=== PATIENT | male | born 1965 | race Caucasian/White ===

== ENCOUNTER 2017-06-26 13:41 | Emergency (ER) | payer MEDICAID ==
--- NOTE | 2017-06-26 14:22 | Emergency Department Record ---
History of Present Illness - General Chief Complaint: Back Pain/Injury Stated Complaint: LOWER BACK PAIN,RADIATING DOWN LT LEG Time Seen by Provider: 06/26/17 14:13 Source: Patient, RN notes reviewed - History of Present Illness Initial Comments: left SI paont area and pain radiates down the leg left and this has been going on for 2 weeks and he states no Dr. or clinics or hospitals in the last month. Able to stand on toes and standing lfexion to the ankles and more pain coming up. 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 last CT scan about one year ago and he is scheduled to have that check in the next week. No headache. No chest pain. MD Complaint: Back pain Radiation: Left leg Severity scale (1-10): 8 Quality: Sharp, Stabbing Consistency: Getting worse Improves With: None Worsens With: Movement Associated Symptoms: Denies other symptoms - Related Data Home Medications Medication Instructions Recorded Confirmed Last Taken Aspirin [Aspirin EC] 81 mg PO DAILY 02/13/15 06/26/17 03/16/16 Atorvastatin Calcium [Lipitor] 80 mg PO DAILY 02/13/15 06/26/17 03/16/16 Clopidogrel Bisulfate [Plavix] 75 mg PO DAILY 02/13/15 06/26/17 03/16/16 Lisinopril [Zestril] 2.5 mg PO DAILY 02/13/15 06/26/17 03/16/16 Nitroglycerin [Nitrostat] 0.4 mg SL ASDIR PRN 02/13/15 06/26/17 Unknown Previous Rx's Medication Instructions Recorded Cyclobenzaprine HCl [Flexeril] 10 mg PO TID #20 tablet 06/26/17 Naproxen [Naprosyn] 500 mg PO Q12H #20 tab. 06/26/17 Allergies Allergy/AdvReac Type Severity Reaction Status Date / Time lidocaine Allergy PT UNSURE Verified 03/16/16 18:03 OF REACTION albuterol AdvReac Severe TACHYCARDIA Verified 03/16/16 18:03 Travel Screening - Travel/Exposure Within Last 30 Days Have you traveled within the last 30 days?: No - Travel/Exposure Within Last Year Have you traveled outside the [place] in the last year?: No - Additonal Travel Details Have you been exposed to anyone with a communicable illness?: No - Travel Symptoms Symptom Screening: None Review of Systems Reviewed: No additional complaints except as noted below Constitutional: Reports: As per HPI. Denies: Chills, Fever, Malaise, Night sweats, Weakness, Weight change Eyes: Reports: As per HPI. Denies: Eye discharge, Eye pain, Photophobia, Vision change ENT: Reports: As per HPI. Denies: Congestion, Dental pain, Ear pain, Epistaxis , Hearing loss, Throat pain Respiratory: Reports: As per HPI. Denies: Cough, Dyspnea, Hemoptysis, Stridor, Wheezes Cardiovascular: Reports: As per HPI. Denies: Arrhythmia, Chest pain, Dyspnea on exertion, Edema, Murmurs, Orthopnea, Palpitations, Paroxysmal nocturnal dyspnea, Rheumatic Fever, Syncope Endocrine: Reports: As per HPI. Denies: Fatigue, Heat or cold intolerance, Polydipsia, Polyuria Gastrointestinal: Reports: As per HPI. Denies: Abdominal pain, Constipation, Diarrhea, Hematemesis, Hematochezia, Melena, Nausea, Vomiting Genitourinary: Reports: As per HPI. Denies: Dysuria, Frequency, Hematuria, Incontinence, Retention, Testicular pain, Testicular mass, Urgency Musculoskeletal: Reports: As per HPI, Back pain. Denies: Arthralgia, Gout, Joint swelling, Myalgia, Neck pain Skin: Reports: As per HPI. Denies: Bruising, Change in color, Change in hair/ nails, Lesions, Pruritus, Rash Neurological: Reports: As per HPI. Denies: Abnormal gait, Confusion, Headache, Numbness, Paresthesias, Seizure, Tingling, Tremors, Vertigo, Weakness Psychiatric: Reports: As per HPI. Denies: Anxiety, Auditory hallucinations, Depression, Homicidal thoughts, Suicidal thoughts, Visual hallucinations Hematological/Lymphatic: Reports: As per HPI. Denies: Anemia, Blood Clots, Easy bleeding, Easy bruising, Swollen glands Past Medical History - SOCIAL HISTORY Smoking Status: Heavy tobacco smoker (>10/day) Alcohol Use: None Drug Use: Occasional Drug Use Detail:: Marijuana - RESPIRATORY Hx Respiratory Disorders: No - CARDIOVASCULAR Hx Cardio Disorders: Yes Hx Heart Attack: Yes (with stents x3) Comment:: aneurysm 2015 - NEURO Hx Neuro Disorders: Yes Hx CVA: Yes (Jul 2015) - GI Hx GI Disorders: No - Hx Genitourinary Disorders: No - ENDOCRINE Hx Endocrine Disorders: No - MUSCULOSKELETAL Hx Musculoskeletal Disorders: No - PSYCH Hx Psych Problems: No - HEMATOLOGY/ONCOLOGY Hx Hematology/Oncology Disorders: No Family Medical History Any Significant Family History?: No Hx Stroke: Mother, Brother/Sister Physical Exam - General General Appearance: Alert, Oriented x3, Cooperative, No acute distress - Head Head exam: Normal inspection - Eye Eye exam: Normal appearance, PERRL Pupils: Normal accommodation - ENT ENT exam: Normal exam, Mucous membranes moist, Normal external ear exam, Normal orophraynx, TM's normal bilaterally Ear exam: Normal external inspection. negative: External canal tenderness Nasal Exam: Normal inspection. negative: Discharge, Sinus tenderness Mouth exam: Normal external inspection, Tongue normal Teeth exam: Normal inspection. negative: Dental caries Throat exam: Normal inspection. negative: Tonsillar erythema, Tonsillar exudate - Neck Neck exam: Normal inspection, Full ROM. negative: Tenderness - Respiratory Respiratory exam: Normal lung sounds bilaterally. negative: Respiratory distress - Cardiovascular Cardiovascular Exam: Regular rate, Normal rhythm, Normal heart sounds - GI/Abdominal GI/Abdominal exam: Soft, Normal bowel sounds. negative: Tenderness - Rectal Rectal exam: Deferred - exam: Deferred - Extremities Extremities exam: Normal inspection, Full ROM, Normal capillary refill. negative: Tenderness - Back Back exam: Reports: Normal inspection, Full ROM, Tenderness (left SI joint pain worse with palpation). Denies: Muscle spasm, Rash noted - Neurological Neurological exam: Alert, Normal gait, Oriented X3, Reflexes normal - Psychiatric Psychiatric exam: Normal affect, Normal mood - Skin Skin exam: Dry, Intact, Normal color, Warm Course Vital Signs 06/26/17 13:48 Temperature 98.1 F Pulse Rate 69 Respiratory 18 Rate Blood Pressure 121/85 Pulse Ox 96 - Reevaluation(s) Reevaluation #1: patient no longer in the room. 06/26/17 15:42 Disposition Clinical Impression: Lumbar strain Qualifiers: Encounter type: initial encounter Qualified Code(s): S39.012A - Strain of muscle, fascia and tendon of lower back, initial encounter Disposition: Home, Self-Care Condition: (2) Stable Instructions: Low Back Strain (ED) Additional Instructions: follow up with family Prescriptions: Cyclobenzaprine HCl [Flexeril] 10 mg PO TID #20 tablet Naproxen [Naprosyn] 500 mg PO Q12H #20 tab.dr Forms: Patient Portal Access Time of Disposition: 15:47 Quality - Blood Pressure Screening Does Patient Have Any of the Following: No Blood Pressure Classification: Pre-Hypertensive BP Reading Systolic Measurement: 121 Diastolic Measurement: 85 Screening for High Blood Pressure: < Pre-Hypertensive BP, F/U Documented > [ G8950]
[2017-06-26] MEDS ORDERED: ORPHENADRINE CITRATE 60MG/2ML VIAL IM ONE (14:24)
[2017-06-26] MEDS ORDERED: KETOROLAC 60 MG/2 ML VIAL IM STA (14:24)
[2017-06-26] MEDS ORDERED: PROMETHAZINE HCL 25 MG/ML VIAL IM ONE (15:21)
[2017-06-26] MEDS ORDERED: HYDROMORPHONE HCL 1MG/ML **SYRINGE IM ONE (15:21)
== END 2017-06-26 15:46 | disposition left against medical advice (07) ==
LOC: ER 13:41
DX: S39.012A Strain of muscle, fascia and tendon of lower back, initial encounter (principal); X58.XXXA Exposure to other specified factors, initial encounter
CPT/HCPCS: 96372; 99283; J1885; J2360

== ENCOUNTER 2017-12-11 12:59 | Emergency (ER) | payer MEDICAID ==
[2017-12-11] MEDS ORDERED: HYDROCODONE/APAP 7.5/325MG TABLET PO ONE (13:15)
[2017-12-11] MEDS ORDERED: OSTELTAMIVIR 75 MG CAP PO ONE (13:15)
--- NOTE | 2017-12-11 13:20 | Emergency Department Record ---
History of Present Illness - General Stated Complaint: FLU SYMPTOMS Time Seen by Provider: 12/11/17 13:15 Source: Patient, Family Mode of Arrival: Ambulatory Limitations: No limitations - History of Present Illness Initial Comments: 52 yo male presents with cough, congestion, runny nose, fever, chills, and all over body aches. The onset was last night. No vomiting, no rash, no diarrhea. He did get a flu shot and a pneumonia shot this year. He has been exposed to others with very similar symptoms. His back hurts from shaky chills. No abdominal pain MD Complaint: Cough, Fever, Nasal congestion, Rhinorrhea, Sinus pain, Other ( chills and fever) - Related Data Home Medications Medication Instructions Recorded Confirmed Last Taken Metoprolol Tartrate [Lopressor] 12.5 mg PO Q12H 12/11/17 12/11/17 Unknown Previous Rx's Medication Instructions Recorded Cyclobenzaprine HCl [Flexeril] 10 mg PO TID #20 tablet 06/26/17 Naproxen [Naprosyn] 500 mg PO Q12H #20 tab.dr 06/26/17 Azithromycin [Zithromax] 250 mg PO DAILY #4 tab 12/11/17 Hydrocodone/Acetaminophen [[place] 1 each PO Q8H PRN #9 tablet 12/11/17 5-325 Tablet] Oseltamivir Phosphate [Tamiflu] 75 mg PO BID #10 capsule 12/11/17 Allergies Allergy/AdvReac Type Severity Reaction Status Date / Time lidocaine Allergy PT UNSURE Verified 03/16/16 18:03 OF REACTION albuterol AdvReac Severe TACHYCARDIA Verified 03/16/16 18:03 Past Medical History - SOCIAL HISTORY Smoking Status: Heavy tobacco smoker (>10/day) Drug Use: Occasional Drug Use Detail:: Marijuana - RESPIRATORY Hx Respiratory Disorders: No - CARDIOVASCULAR Hx Cardio Disorders: Yes Hx Heart Attack: Yes (with stents x3) Comment:: aneurysm 2014 - NEURO Hx Neuro Disorders: Yes Hx CVA: Yes (Jul 2015) - GI Hx GI Disorders: No - Hx Genitourinary Disorders: No - ENDOCRINE Hx Endocrine Disorders: No - MUSCULOSKELETAL Hx Musculoskeletal Disorders: No - PSYCH Hx Psych Problems: No - HEMATOLOGY/ONCOLOGY Hx Hematology/Oncology Disorders: No Family Medical History Hx Stroke: Mother, Brother/Sister Course - Reevaluation(s) Reevaluation #1: 12/11/17 14:28 The Influenza are negative The CXR is negative His symptoms are classic for flu and possibly a false negative. I recommended treatment for Flu as well We discussed home care and reasons to return to the ED. Disposition Disposition: Discharge Clinical Impression: Influenza, Bronchitis Disposition: Home, Self-Care Condition: (1) Good Instructions: Influenza (ED) Additional Instructions: Rest and stay well hydrated Return if worse, fever, vomiting or any new concerns Prescriptions: Azithromycin [Zithromax] 250 mg PO DAILY #4 tab Hydrocodone/Acetaminophen [[place] 5-325 Tablet] 1 each PO Q8H PRN #9 tablet PRN Reason: Pain - General Oseltamivir Phosphate [Tamiflu] 75 mg PO BID #10 capsule Forms: Patient Portal Access Time of Disposition: 14:32 Quality - Quality Measures Quality Measures: N/A - Blood Pressure Screening Does Patient Have Any of the Following: No Blood Pressure Classification: Pre-Hypertensive BP Reading Systolic Measurement: 121 Diastolic Measurement: 75 Screening for High Blood Pressure: < Pre-Hypertensive BP, F/U Documented > [ G8950] Pre-Hypertensive Follow-up Interventions: Referral to alternative/primary care provider.
[2017-12-11 13:42] LABS: INFLUENZA A NEGATIVE (NEGATIVE)
[2017-12-11 13:43] LABS: INFLUENZA B NEGATIVE (NEGATIVE)
[2017-12-11] MEDS ORDERED: AZITHROMYCIN 500 MG TABLET PO ONE (14:37)
--- NOTE | 2017-12-12 09:45 | RADIOLOGY REPORT ---
EXAM: CHEST 2 VIEWS HISTORY: COUGH, BODY ACHES, FEVER. TECHNIQUE: PA and lateral views. COMPARISON: Two-view chest, 02/06/16. FINDINGS: Persistent pleural thickening at the right base as before. Heart size stable. Coronary artery calcification or stent as before along the left side of the heart. When comparison is made with the prior study, no definite acute infiltrate is seen today. No pneumothorax evident. IMPRESSION: 1. CHRONIC PLEURAL THICKENING AT THE RIGHT BASE. 2. NO DEFINITE ACUTE INFILTRATE SEEN. JOB NUMBER: [id number] [facility]
== END 2017-12-11 14:41 | disposition home or self-care (01) ==
LOC: ER 12:59
DX: J10.1 Influenza due to other identified influenza virus with other respiratory manifestations (principal); Z86.73 Personal history of transient ischemic attack (TIA), and cerebral infarction without residual deficits; I25.2 Old myocardial infarction; F17.210 Nicotine dependence, cigarettes, uncomplicated
CPT/HCPCS: 71046; 87400; 99283; 99284

== ENCOUNTER 2018-07-19 14:59 | Emergency (ER) | payer MEDICAID ==
[2018-07-19] MEDS ORDERED: 0.9 % SODIUM CHLORIDE 1000ML 1,000 ML IV PRN (15:04)
[2018-07-19] MEDS ORDERED: ACTIVATED CHARCOAL/SORBITOL SOL 50 GM/240 ML BTL PO ONE (15:05)
[2018-07-19 15:13] LABS: BASO % 0.3 % (0-6); EOS % 1.8 % (0-6); HEMATOCRIT 43.4 % (42.0-52.0); HEMOGLOBIN 14.4 gm/dl (14.0-18.0); LYMPH % 39.5 % (16-45); MEAN CELL VOLUME 90.6 fl (81-97); MEAN CORPUSCULAR HEMOGLOBIN 30.1 pg (27-33); MEAN CORPUSCULAR HGB CONC 33.2 g/dl (32-36); MEAN PLATELET VOLUME 9.1 fl (7.4-10.4); MONO % 8.4 % (0-9); PLATELET COUNT 284 K/uL (130-400); RED BLOOD COUNT 4.79 M/uL (4.40-5.70); RED CELL DISTRIBUTION WIDTH 14.3 % (11.5-14.5); WHITE BLOOD COUNT W/O DIFF 6.2 K/uL (4.2-12.2)
[2018-07-19 15:26] LABS: BLOOD UREA NITROGEN 9 mg/dL (6-20); INR 1.1; PARTIAL THROMBOPLASTIN TIME 42.2 SECONDS (24.5-39.1); PROTHROMBIN TIME (PATIENT) 10.7 SECONDS (9.5-12.1)
[2018-07-19 15:27] LABS: CREATININE 1.1 mg/dL (0.7-1.2); EST GLOMERULAR FILTRATION RATE > 60 mL/min; TOTAL PROTEIN 6.4 g/dL (6.6-8.7)
[2018-07-19 15:29] LABS: GLUCOSE,RANDOM 105 mg/dL (74-109)
[2018-07-19 15:32] LABS: ALB/GLOB RATIO 1.9 (1.1-1.8); ALBUMIN 4.2 g/dL (4.0-5.0); ALKALINE PHOSPHATASE 42 U/L (40-129); ALT/SGPT 28 U/L (<41); AST/SGOT 24 U/L (10.0-50.0)
--- NOTE | 2018-07-19 15:37 | Emergency Department Record ---
History of Present Illness - General Chief Complaint: Overdose Stated Complaint: OD Time Seen by Provider: 07/19/18 15:03 Source: Patient, RN notes reviewed Mode of Arrival: Wheelchair - History of Present Illness Initial Comments: patient overdosed on ativan 1mg up to 26 pill and trazodone 50 mg times 5 and lexapro 1o mg times three. Patient talking and lethargic with a good gag reflex and gave him charcoal because one hour since ingestion. Marriage problems. Complaint: Intentional overdose Onset/Timin -: Hour(s) - Detail Intent: Want to escape, Other How Overdose Was Discovered: Family/friend present at time, Other Context: Accidental Overdose: Other Context: Intentional Overdose: Relationship problems Treatments Prior to Arrival: None - Related Data Home Medications Medication Instructions Recorded Confirmed Last Taken Escitalopram Oxalate [Lexapro] 10 mg PO DAILY 07/19/18 07/19/18 Unknown Lorazepam [Ativan] 1 mg PO Q8H 07/19/18 07/19/18 Unknown Trazodone HCl 50 mg PO QHS 07/19/18 07/19/18 Unknown Allergies Allergy/AdvReac Type Severity Reaction Status Date / Time lidocaine Allergy PT UNSURE Verified 03/16/16 18:03 OF REACTION albuterol AdvReac Severe TACHYCARDIA Verified 03/16/16 18:03 Travel Screening - Travel/Exposure Within Last 30 Days Have you traveled within the last 30 days?: No Review of Systems Reviewed: No additional complaints except as noted below Constitutional: Reports: As per HPI. Denies: Chills, Fever, Malaise, Night sweats, Weakness, Weight change Eyes: Reports: As per HPI. Denies: Eye discharge, Eye pain, Photophobia, Vision change ENT: Reports: As per HPI. Denies: Congestion, Dental pain, Ear pain, Epistaxis , Hearing loss, Throat pain Respiratory: Reports: As per HPI. Denies: Cough, Dyspnea, Hemoptysis, Stridor, Wheezes Cardiovascular: Reports: As per HPI. Denies: Arrhythmia, Chest pain, Dyspnea on exertion, Edema, Murmurs, Orthopnea, Palpitations, Paroxysmal nocturnal dyspnea, Rheumatic Fever, Syncope Endocrine: Reports: As per HPI. Denies: Fatigue, Heat or cold intolerance, Polydipsia, Polyuria Gastrointestinal: Reports: As per HPI. Denies: Abdominal pain, Constipation, Diarrhea, Hematemesis, Hematochezia, Melena, Nausea, Vomiting Genitourinary: Reports: As per HPI. Denies: Dysuria, Frequency, Hematuria, Incontinence, Retention, Testicular pain, Testicular mass, Urgency Musculoskeletal: Reports: As per HPI. Denies: Arthralgia, Back pain, Gout, Joint swelling, Myalgia, Neck pain Skin: Reports: As per HPI. Denies: Bruising, Change in color, Change in hair/ nails, Lesions, Pruritus, Rash Neurological: Reports: As per HPI. Denies: Abnormal gait, Confusion, Headache, Numbness, Paresthesias, Seizure, Tingling, Tremors, Vertigo, Weakness Psychiatric: Reports: As per HPI. Denies: Anxiety, Auditory hallucinations, Depression, Homicidal thoughts, Suicidal thoughts, Visual hallucinations Hematological/Lymphatic: Reports: As per HPI. Denies: Anemia, Blood Clots, Easy bleeding, Easy bruising, Swollen glands Past Medical History - SOCIAL HISTORY Smoking Status: Heavy tobacco smoker (>10/day) - RESPIRATORY Hx Respiratory Disorders: No - CARDIOVASCULAR Hx Cardio Disorders: Yes Hx Heart Attack: Yes (with stents x3) Comment:: aneurysm 2014 - NEURO Hx Neuro Disorders: Yes Hx CVA: Yes (Jul 2015) - GI Hx GI Disorders: No - Hx Genitourinary Disorders: No - ENDOCRINE Hx Endocrine Disorders: No - MUSCULOSKELETAL Hx Musculoskeletal Disorders: No - PSYCH Hx Psych Problems: No - HEMATOLOGY/ONCOLOGY Hx Hematology/Oncology Disorders: No Family Medical History Any Significant Family History?: No Hx Stroke: Mother, Brother/Sister Physical Exam - General General Appearance: Oriented x3, Cooperative, Moderate distress, Other ( lethargic but wakes up to verbal commands) - Head Head exam: Normal inspection - Eye Eye exam: Normal appearance, PERRL Pupils: Normal accommodation - ENT ENT exam: Normal exam, Mucous membranes moist, Normal external ear exam, Normal orophraynx, TM's normal bilaterally Ear exam: Normal external inspection. negative: External canal tenderness Nasal Exam: Normal inspection. negative: Discharge, Sinus tenderness Mouth exam: Normal external inspection, Tongue normal Teeth exam: Normal inspection. negative: Dental caries Throat exam: Normal inspection. negative: Tonsillar erythema, Tonsillar exudate - Neck Neck exam: Normal inspection, Full ROM. negative: Tenderness - Respiratory Respiratory exam: Normal lung sounds bilaterally. negative: Respiratory distress - Cardiovascular Cardiovascular Exam: Regular rate, Normal rhythm, Normal heart sounds - GI/Abdominal GI/Abdominal exam: Soft, Normal bowel sounds. negative: Tenderness - Rectal Rectal exam: Deferred - exam: Deferred - Extremities Extremities exam: Normal inspection, Full ROM, Normal capillary refill. negative: Tenderness - Back Back exam: Reports: Normal inspection, Full ROM. Denies: Muscle spasm, Rash noted, Tenderness - Neurological Neurological exam: Alert, Normal gait, Oriented X3, Reflexes normal - Psychiatric Psychiatric exam: Normal affect, Normal mood - Skin Skin exam: Dry, Intact, Normal color, Warm Course Vital Signs 07/19/18 07/19/18 15:08 15:17 Temperature 98.2 F Pulse Rate 71 Respiratory 22 Rate Blood Pressure 101/62 Pulse Ox 96 - Reevaluation(s) Reevaluation #1: discussed case with Dr. Mcdonald and will transfer to [facility] 07/19/18 16:50 Reevaluation #2: filled out petition and cert and Discussed case with Dr. Mcdonald and will transfer to [facility] ICU and patient following commands 07/19/18 17:42 Medical Decision Making - Lab Data Result diagrams: 07/19/18 15:00 07/19/18 15:00 Lab Results 07/19/18 07/19/18 07/19/18 Range/Units 15:00 15:00 15:00 WBC 6.2 (4.2-12.2) K/uL RBC 4.79 (4.40-5.70) M/uL Hgb 14.4 (14.0-18.0) gm/dl Hct 43.4 (42.0-52.0) % MCV 90.6 (81-97) fl MCH 30.1 (27-33) pg MCHC 33.2 (32-36) g/dl RDW 14.3 (11.5-14.5) % Plt Count 284 (130-400) K/uL MPV 9.1 (7.4-10.4) fl Gran % 50.0 (47-80) % Lymphocytes % 39.5 (16-45) % Monocytes % 8.4 (0-9) % Eosinophils % 1.8 (0-6) % Basophils % 0.3 (0-6) % PT 10.7 (9.5-12.1) SECONDS INR 1.1 APTT 42.2 H (24.5-39.1) SECONDS Sodium 140 (136-145) mmol/L Potassium 4.0 (3.4-4.5) mmol/L Chloride 102 (98-107) mmol/L Carbon Dioxide 24.0 (22-29) mmol/L Anion Gap 14.0 (7-16) BUN 9 (6-20) mg/dL Creatinine 1.1 (0.7-1.2) mg/dL Estimated GFR > 60 mL/min Calcium 9.2 (8.6-10.0) mg/dL Total Bilirubin 0.70 (0.2-1.0) mg/dL Total Protein 6.4 L (6.6-8.7) g/dL Disposition Clinical Impression: Suicide attempt Overdose Qualifiers: Encounter type: initial encounter Injury intent: intentional self-harm Qualified Code(s): T50.902A - Poisoning by unspecified drugs, medicaments and biological substances, intentional self-harm, initial encounter Disposition: Acute Care Hospital Transfer Condition: (2) Stable Forms: Patient Portal Access Time of Disposition: 16:49 Quality - Quality Measures Quality Measures: N/A - Blood Pressure Screening Does Patient Have Any of the Following: No Blood Pressure Classification: Normal BP Reading Systolic Measurement: 101 Diastolic Measurement: 62 Screening for High Blood Pressure: < Normal BP, F/U Not Required > [G8783]
[2018-07-19 17:13] LABS: ARTERIAL BLD GAS O2 SATURATION 93.2 % (95-98); ARTERIAL BLOOD GAS BASE EXCESS -2.5 mmol/L (-2 - 3); ARTERIAL BLOOD GAS HCO3 21.9 mmol/L (18-23); ARTERIAL BLOOD GAS PCO2 38.5 mmHg (35-48); ARTERIAL BLOOD GAS pH 7.37 (7.35-7.45); CARBOXYHEMOGLOBIN 6.8 % (0-1.5); O2 HEMOGLOBIN 87.1 % vol (94-99); TOTAL HEMOGLOBIN 13.1 g/dl (14-18)
[2018-07-19 17:14] LABS: METHEMOGLOBIN -0.3 % (0.0-1.5)
[2018-07-19 17:15] LABS: ALLEN TEST PASS
[2018-07-19 17:26] LABS: URINE APPEARANCE CLEAR; URINE BILIRUBIN SMALL (NEGATIVE); URINE BLOOD NEGATIVE (NEGATIVE); URINE COLOR YELLOW; URINE GLUCOSE (UA) NEGATIVE (NEGATIVE); URINE KETONE NEGATIVE (NEGATIVE); URINE LEUKOCYTE ESTERASE NEGATIVE (NEGATIVE); URINE NITRITE NEGATIVE (NEGATIVE); URINE PROTEIN NEGATIVE (NEGATIVE); URINE UROBILINOGEN 0.2 E.U./dL (0.20 - 1.00)
[2018-07-19 17:29] LABS: BARBITURATE SCREEN URINE NOT DETECTED; BENZODIAZEPINE SCREEN URINE DETECTED; METHADONE SCREEN URINE NOT DETECTED; OPIATE SCREEN URINE NOT DETECTED; THC SCREEN URINE NOT DETECTED; TRICYCLIC ANTIDEPRESSANT SCRN NOT DETECTED
[2018-07-19 17:30] LABS: AMPHETAMINE SCREEN URINE NOT DETECTED; COCAINE SCREEN URINE NOT DETECTED; METHAMPHETAMINE SCREEN NOT DETECTED; OXYCODONE SCREEN URINE NOT DETECTED; PHENCYCLIDINE SCREEN URINE NOT DETECTED; PROPOXYPHENE SCREEN URINE NOT DETECTED
== END 2018-07-19 19:28 | disposition left against medical advice (07) ==
LOC: ER 14:59
DX: T42.4X2A Poisoning by benzodiazepines, intentional self-harm, initial encounter (principal); T43.212A Poisoning by selective serotonin and norepinephrine reuptake inhibitors, intentional self-harm, initial encounter; Z86.73 Personal history of transient ischemic attack (TIA), and cerebral infarction without residual deficits; I25.2 Old myocardial infarction; F17.210 Nicotine dependence, cigarettes, uncomplicated
CPT/HCPCS: 36600; 80053; 80305; 81003; 81025; 82375; 82803; 85025; 85610; 85730; 93005; 93010; 96374; 99285

== ENCOUNTER 2018-12-13 11:25 | Emergency (ER) | payer MEDICAID ==
--- NOTE | 2018-12-13 11:49 | Emergency Department Record ---
History of Present Illness - General Chief complaint: ENT Stated complaint: DENTAL PAIN Time Seen by Provider: 12/13/18 11:28 Source: Patient Mode of Arrival: Ambulatory Limitations: No limitations - History of Present Illness Initial comments: The patient has a hx of chronic dental pain for years and now the teeth are worse over the last 3 days. He is having face pain but no fever or swelling. MD complaint: Tooth pain Onset/Timin -: Days(s) Severity: Moderate Severity scale (1-10): 5 Quality: Sharp Consistency: Constant Improves with: None Worsens with: Eating Context- Dental: History of dental caries, Poor dental care - Related Data Home Medications Medication Instructions Recorded Confirmed Last Taken Quetiapine Fumarate [Seroquel] 50 mg PO BID 12/13/18 12/13/18 12/13/18 Previous Rx's Medication Instructions Recorded Clindamycin HCl [Cleocin HCl] 300 mg PO QID #28 capsule 12/13/18 Allergies Allergy/AdvReac Type Severity Reaction Status Date / Time lidocaine Allergy PT UNSURE Verified 03/16/16 18:03 OF REACTION albuterol AdvReac Severe TACHYCARDIA Verified 03/16/16 18:03 Travel Screening - Travel/Exposure Within Last 30 Days Have you traveled within the last 30 days?: No - Travel/Exposure Within Last Year Have you traveled outside the [place] in the last year?: No - Additonal Travel Details Have you been exposed to anyone with a communicable illness?: No - Travel Symptoms Symptom Screening: None Review of Systems Constitutional: Denies: Chills, Fever Past Medical History - SOCIAL HISTORY Smoking Status: Heavy tobacco smoker (>10/day) Alcohol Use: None Drug Use: Occasional Drug Use Detail:: Marijuana - RESPIRATORY Hx Respiratory Disorders: Yes Hx COPD: Yes - CARDIOVASCULAR Hx Cardio Disorders: Yes Hx Heart Attack: Yes (with stents x3) Comment:: aneurysm 2014 - NEURO Hx Neuro Disorders: Yes Hx CVA: Yes (Jul 2015) - GI Hx GI Disorders: No - Hx Genitourinary Disorders: No - ENDOCRINE Hx Endocrine Disorders: No - MUSCULOSKELETAL Hx Musculoskeletal Disorders: No - PSYCH Hx Psych Problems: Yes Hx Anxiety: Yes Hx Depression: Yes - HEMATOLOGY/ONCOLOGY Hx Hematology/Oncology Disorders: No Family Medical History Any Significant Family History?: Yes Hx Cancer: Mother Hx Diabetes: Mother Hx Heart Disease: Mother Hx HTN: Mother Hx Stroke: Mother, Brother/Sister Physical Exam - General General Appearance: Alert, Oriented x3, Cooperative, No acute distress - Head Head exam: Atraumatic, Normocephalic - Eye Eye exam: Normal appearance, PERRL, EOMI - ENT ENT exam: Normal exam, Normal orophraynx, TM's normal bilaterally Teeth exam: Dental caries, Dental tenderness # (1,2,31,32.), Other (There are no signs of any abscess or edema.). negative: Normal inspection, Gingival enlargement Throat exam: Normal inspection. negative: Tonsillar erythema, Tonsillar exudate - Neck Neck exam: Normal inspection, Full ROM. negative: Tenderness - Respiratory Respiratory exam: Normal lung sounds bilaterally. negative: Respiratory distress - Cardiovascular Cardiovascular Exam: Regular rate, Normal rhythm, Normal heart sounds Course Vital Signs 12/13/18 11:30 Temperature 97.8 F Pulse Rate 74 Respiratory 18 Rate Blood Pressure 144/100 Pulse Ox 100 - Reevaluation(s) Reevaluation #1: I did explain to the patient the need for F/U with the Dentist BRITTANY. He is to return to the ER for any worsening symptoms. 12/13/18 11:51 Disposition Disposition: Discharge Clinical Impression: Pain, dental Disposition: Home, Self-Care Condition: (2) Stable Instructions: Toothache (ED) Additional Instructions: Please take Tylenol for pain and use the Clindamycin as directed. Please see the Dentist BRITTANY. Prescriptions: Clindamycin HCl [Cleocin HCl] 300 mg PO QID #28 capsule Forms: Patient Portal Access Time of Disposition: 11:48 Quality - Quality Measures Quality Measures: N/A - Blood Pressure Screening View Details: Yes Does Patient Have Any of the Following: Active Dx of HTN Blood Pressure Classification: Hypertensive Reading Systolic Measurement: 144 Diastolic Measurement: 100 Screening for High Blood Pressure: Patient Exclusion, Hx of HTN [G9744]
== END 2018-12-13 11:59 | disposition home or self-care (01) ==
LOC: ER 11:25
DX: K08.89 Other specified disorders of teeth and supporting structures (principal); J44.9 Chronic obstructive pulmonary disease, unspecified; I25.2 Old myocardial infarction; I10 Essential (primary) hypertension; F17.210 Nicotine dependence, cigarettes, uncomplicated
CPT/HCPCS: 99282